=== PATIENT | female | born 1970 | race Two or more races ===

== ENCOUNTER 2019-10-21 11:30 | Inpatient (IN) | payer OTHER ==
[~2019-10-21] VITALS: Ht 165.1 cm; Wt 88.5 kg
[~2019-10-21 11:30] MED LIST: ELAVIL; XELJANZ5 MG PO
[2019-10-27] MEDS ORDERED: PERCOCET 5-3251 EACH PO (13:43)
[2019-10-27] MEDS ORDERED: DIAZEPAM10 MG PO (13:43)
[2019-10-27] MEDS ORDERED: COLACE100 MG PO (13:43)
== END 2019-10-28 13:37 | disposition home or self-care (01) | DRG 473 ==
LOC: O/R 10-27 05:00 → SURH 10-27 05:00 → O/R 10-27 11:30 → SURH 10-27 11:30
PROVIDERS: ADMIT Orthopaedic Surgery Orthopaedic Surgery of the Spine; ATTEND Orthopaedic Surgery Orthopaedic Surgery of the Spine
PROC: 0RT30ZZ Resection of Cervical Vertebral Disc, Open Approach (ICD-10-PCS; 2019-10-27)
PROC: 0RG20A0 Fusion of 2 or more Cervical Vertebral Joints with Interbody Fusion Device, Anterior Approach, Anterior Column, Open Approach (ICD-10-PCS; principal; 2019-10-27 10:00)
DX: M50.021 Cervical disc disorder at C4-C5 level with myelopathy (principal); M48.02 Spinal stenosis, cervical region

== ENCOUNTER 2020-05-18 08:45 | Inpatient (IN) | payer OTHER ==
[~2020-05-18] VITALS: Ht 165.1 cm; Wt 90.7 kg
[~2020-05-18 08:45] MED LIST changes: +COLACE100 MG PO; +DIAZEPAM10 MG PO; +PERCOCET 5-3251 EACH PO
[2020-05-25] MEDS ORDERED: AMITRIPTYLINE H75 MG (07:56)
[2020-05-25] MEDS ORDERED: AMITRIPTYLINE H25 MG PO (07:57)
[2020-05-25] MEDS ORDERED: COLACE100 MG PO (10:29)
[2020-05-25] MEDS ORDERED: CIPROFLOXACIN750 MG PO (10:29)
[2020-05-25] MEDS ORDERED: MEDROLPACK PO (10:29)
[2020-05-25] MEDS ORDERED: NEURONTIN800 MG PO (10:29)
[2020-05-25] MEDS ORDERED: DIAZEPAM5 MG PO (10:29)
[2020-05-25] MEDS ORDERED: PERCOCET 5-3251 EACH PO (10:29)
== END 2020-05-26 15:49 | disposition home or self-care (01) | DRG 455 ==
LOC: O/R 05-25 04:40 → SURH 05-25 07:00 → OB/GYN 05-25 22:33
PROVIDERS: ADMIT Orthopaedic Surgery Orthopaedic Surgery of the Spine; ATTEND Orthopaedic Surgery Orthopaedic Surgery of the Spine
PROC: 0SG00J1 Fusion of Lumbar Vertebral Joint with Synthetic Substitute, Posterior Approach, Posterior Column, Open Approach (ICD-10-PCS; 2020-05-25)
PROC: 0SG10A0 Fusion of 2 or more Lumbar Vertebral Joints with Interbody Fusion Device, Anterior Approach, Anterior Column, Open Approach (ICD-10-PCS; 2020-05-25)
PROC: 0SG Lower Joints, Fusion (ICD-10-PCS; 2020-05-25)
PROC: 3E0U0GB Introduction of Recombinant Bone Morphogenetic Protein into Joints, Open Approach (ICD-10-PCS; 2020-05-25)
PROC: 0SB20ZZ Excision of Lumbar Vertebral Disc, Open Approach (ICD-10-PCS; principal; 2020-05-25 07:00)
DX: M48.062 Spinal stenosis, lumbar region with neurogenic claudication (principal); M41.86 Other forms of scoliosis, lumbar region

== ENCOUNTER 2020-12-20 14:48 | Emergency (ER) | payer OTHER ==
[~2020-12-20] VITALS: Ht 165.1 cm; Wt 90.7 kg
[~2020-12-20 14:48] MED LIST changes: +AMITRIPTYLINE H25 MG PO; +AMITRIPTYLINE H75 MG; +CIPROFLOXACIN750 MG PO; +DIAZEPAM5 MG PO; +MEDROLPACK PO; +NEURONTIN800 MG PO
[2020-12-20] MEDS ORDERED: EFFEXOR XR75 MG PO (15:22)
[2020-12-20] MEDS ORDERED: LYRICA50 MG PO (15:22)
[2020-12-20] MEDS ORDERED: DICY20TA PO (17:36)
[2020-12-20] MEDS ORDERED: PEPCID AC20 MG PO (17:36)
== END 2020-12-20 17:54 | disposition home or self-care (01) ==
LOC: ER 14:48
DX: K80.80 Other cholelithiasis without obstruction (principal)

== ENCOUNTER 2021-06-27 08:56 | Emergency (ER) | payer OTHER ==
[~2021-06-27] VITALS: Ht 165.1 cm; Wt 90.7 kg
[~2021-06-27 08:56] MED LIST changes: +DICY20TA PO; +EFFEXOR XR75 MG PO; +LYRICA50 MG PO; +PEPCID AC20 MG PO
[2021-06-27] MEDS ORDERED: XELJANZ10 MG (09:17)
== END 2021-06-27 18:22 | disposition home or self-care (01) ==
LOC: ER 08:56
DX: K80.20 Calculus of gallbladder without cholecystitis without obstruction (principal)

== ENCOUNTER 2021-08-26 09:44 | Outpatient (CLI) | payer OTHER ==
[~2021-08-26 09:44] MED LIST changes: +XELJANZ10 MG
== END 2021-08-26 09:53 | disposition home or self-care (01) ==
LOC: RX STUDY 09:44
PROVIDERS: ATTEND Internal Medicine
DX: R13.12 Dysphagia, oropharyngeal phase (principal)

== ENCOUNTER 2023-10-19 09:55 | Outpatient (CLI) | payer OTHER | END 2023-10-19 10:00 | disposition home or self-care (01) | LOC: RX STUDY 09:55 | PROVIDERS: ATTEND Internal Medicine | DX: R13.12 Dysphagia, oropharyngeal phase (principal) ==